=== PATIENT | female | born 1965 | race Asian ===

== ENCOUNTER → 2016-12-16 | Outpatient (CLI) | payer OTHER ==
--- NOTE | 2016-12-16 10:15 | DIAGNOSTIC IMAGING REPORT ---
LEFT SHOULDER MIN 2 VIEWS ROUTINE CLINICAL HISTORY: Left shoulder pain following fall. COMPARISON: None FINDINGS: Alignment of the left shoulder is anatomic. A few small calcific densities are noted along the superolateral aspect of the left humeral head. These measure up to 4 mm. No acute fracture is identified. There is mild degenerative changes of the left shoulder. IMPRESSION: 1. No acute fracture or dislocation of the left shoulder. 2. A few small calcific densities along the superolateral aspect of the left humeral head. These are nonspecific although could reflect minimal calcific tendinitis. Electronically signed by: Jan Crump M.D. 12/16/2016 10:14 AM Dictated Date/Time: 12/16/2016 10:12 AM
--- NOTE | 2016-12-16 10:16 | DIAGNOSTIC IMAGING REPORT ---
RIGHT SHOULDER MIN 2 VIEWS ROUTINE CLINICAL HISTORY: Right shoulder pain status post fall. COMPARISON: None FINDINGS: Alignment of the right shoulder is anatomic. There is no acute fracture. There is mild arthritis of the right acromioclavicular and glenohumeral joints. IMPRESSION: No acute fracture or dislocation of the right shoulder. Electronically signed by: Jan Crump M.D. 12/16/2016 10:15 AM Dictated Date/Time: 12/16/2016 10:14 AM
== END | disposition home or self-care (01) ==
LOC: C.RAD 09:33
PROVIDERS: ATTEND Nurse Practitioner Family
DX: M25.511 Pain in right shoulder (principal); M62.838 Other muscle spasm; M25.512 Pain in left shoulder

== ENCOUNTER 2017-04-04 18:48 | Emergency (ER) | payer OTHER ==
[~2017-04-04] VITALS: Ht 162.6 cm; Wt 61.0 kg
[2017-04-04 18:52] VITALS: TEMP 36.7; Ht 162.6 cm; Wt 61.0 kg
--- NOTE | 2017-04-04 19:22 | EMERGENCY ROOM VISIT NOTE ---
ED Visit Note First contact with patient: 18:54 CHIEF COMPLAINT: Eye pain HISTORY OF PRESENT ILLNESS: This 52-year-old female patient presents to the emergency department ambulatory complaining of irritation in the right eye. The patient states that she accidentally soaked her contact lenses in a disinfectant solution rather than her normal contact solution last night. She states that she flushed the eye with water and with her regular contact solution. She has had continued irritation in the eye which she rates a 1/10. Her vision has not been affected. She has been wearing her contacts today. She states that she told a coworker and they told her to come here because they were concerned for a chemical infection in the eye. REVIEW OF SYSTEMS: A 6 system review of systems was completed with positives and pertinent negatives listed in the HPI. ALLERGIES: Latex, aspirin, penicillins MEDICATIONS: No chronic medications PMH: No significant past medical history. SOCIAL HISTORY: The patient lives locally with family. PHYSICAL EXAM: Vital Signs: Reviewed Nurse's notes, vital signs stable. Visual acuity 20/30 bilateral eyes with correction. GENERAL: This is a 52-year-old female, in no acute distress, but who is uncomfortable from the eye problem. Well-developed well-nourished. EYES: The pupils are equal round and reactive to light and accommodation. EOMs are full and without tenderness. There is discharge of clear tears from the right eye which is injected. There is no foreign body visible under the eyelid even after lid eversion. Funduscopic exam reveals no hemorrhages, papilledema, or other abnormalities. No foreign body was seen embedded in the cornea under slit lamp exam. The cornea was clear and no hyphema was seen. Fluorescein uptake was observed with ultraviolet light significant for a corneal abrasion there is minimal fluorescein uptake over the area of the cornea diffusely. EMERGENCY DEPARTMENT COURSE: I examined the patient. A slit lamp exam was performed as above. She does appear to have a very mild chemical irritation of the eye with minimal fluorescein uptake. The patient was placed on Ciloxan and instructed to wear her glasses rather than contacts for the next one week. I suspect that her symptoms will resolve very quickly. She was instructed to follow-up with her eye doctor or return here for any worsening or new/ concerning symptoms. She verbalized understanding and was discharged home in good condition. Medication reconciliation: I attest that I have personally reviewed the patient 's current medication list. Blood pressure screening: Patient was found to have normal blood pressure on screening and does not require follow-up. DIAGNOSIS: Chemical irritation of the right eye Current/Historical Medications No Active Prescriptions or Reported Meds Allergies Coded Allergies: Latex1 -Allergic Contact Dermititis (Verified Allergy, Mild, PT STATES UNKNOWN REACTION, 04/04/17) Penicillins (Verified Allergy, Mild, UNKNOWN CHILD RXN, 10/19/09) Aspirin (Verified Adverse Reaction, Mild, GI UPSET, 04/04/17) Vital Signs Date Time Temp Pulse Resp B/P (MAP) Pulse Ox O2 Delivery O2 Flow Rate FiO2 04/04/17 19:36 67 16 96/70 96 04/04/17 18:52 36.7 67 18 123/66 94 Room Air Medications Administered Medications (Trade) Dose Ordered Sig/Shobha Route Start Time Stop Time Status Last Admin Dose Admin Ciprofloxacin HCl (Ciprofloxacin 0.3% Op Soln) 2 drops Q4H ONCE OP 04/04/17 19:30 04/04/17 19:31 DC 04/04/17 19:35 2 DROPS Departure Information Impression Primary Impression: Chemical exposure of eye Dispostion Home / Self-Care Condition GOOD Prescriptions No Active Prescriptions or Reported Meds Referrals Yuly Coe C.R.NDonnaPDonna (PCP) Patient Instructions My [facility] Additional Instructions You have been prescribed Ciloxan eye drops. This is an antibiotic which will help to prevent an infection from developing in your affected eye. Use 2 drops in the affected eye every 4 hours while awake for the next 3-4 days until symptoms resolve. For pain control, you can use the following [id number] medicines (if >12 yo): - Regular strength (325mg/tab) Tylenol (acetaminophen) 2 tabs every 4-6 hours as needed. Do not exceed 12 tablets in a 24 hour period. Avoid taking more than 4 grams (4000 mg) of Tylenol per day. This includes any other sources of acetaminophen you may take on a regular basis. - Regular strength (200 mg/tab) Advil (ibuprofen) 1-2 tabs every 4-6 hours as needed. Do not exceed a dose of 3200 mg per day. Wear your glasses rather than contacts for the next 3-4 days or until symptoms have completely resolved.
[2017-04-04] MEDS ORDERED: CIPROFLOXACIN HCL 0.3% OP SOLN 2.5 ML BTL OP ONE (19:30)
[2017-04-04 19:36] VITALS: BP 96/70; PULSE 67; O2SAT 96
== END 2017-04-04 19:38 | disposition home or self-care (01) ==
LOC: C.EDB 18:49 → C.EDD 19:38
DX: Z77.098 Contact with and (suspected) exposure to other hazardous, chiefly nonmedicinal, chemicals (principal)

== ENCOUNTER → 2017-09-09 | Outpatient (CLI) | payer OTHER ==
[~2017-09-09] MED LIST: LUTE15CA PO; TRAM-10 PO; ULT50X PO
== END | disposition home or self-care (01) ==
LOC: C.RDSM 13:09
PROVIDERS: ATTEND Physical Medicine & Rehabilitation Sports Medicine
DX: M25.511 Pain in right shoulder (principal); M25.512 Pain in left shoulder

== ENCOUNTER → 2017-10-08 | Day surgery (SDC) | payer OTHER ==
[2017-09-16 13:40] VITALS: Ht 162.6 cm; Wt 60.5 kg
[~2017-10-08] VITALS: Ht 162.6 cm; Wt 60.5 kg
[~2017-10-08] MED LIST changes: +ATROPINE SULFATE 0.1 MG/ML 5ML SYR IV PRN; +CEFAZOLIN 1000MG IV PUSH 5 ML IV SCH; +DEXAMETHASONE SOD INJ 4 MG/ML VIAL ONE; +EpHEDrine SULFATE INJ 50 MG/ML AMP IV PRN; +EpHEDrine SULFATE INJ 50 MG/ML AMP ONE; +EpINEphrine INJ 1MG/ML AMP 1 MG/ML AMP ONE; +FENTANYL CITRATE INJ 50 MCG/1 ML 2 ML VIAL IV PRN; +FENTANYL CITRATE INJ 50 MCG/1 ML 2 ML VIAL ONE; +HYDROCODONE/ACETAMOPHEN 5/325MG TAB PO PRN; +LACTATED RINGER'S 1000ML 1,000 ML IV SCH; +LIDOCAINE HCL 1% MPF 5 ML VIAL ONE; +LIDOCAINE HCL 2% 2 ML VIAL (20MG/ML) ONE; +LIDOCAINE/EPINEPHRINE 1% 20 ML VIAL ONE; -LUTE15CA PO; +MIDAZOLAM HCL 1 MG/ML 2ML VIAL ONE; +MoRPHine SULFATE 2 MG/ML CARP IV PRN; +MoRPHine SULFATE 4 MG/ML 1 ML CARP\\VIAL IV PRN; +ONDANSETRON INJ 2 MG/ML 2 ML VIAL IV PRN; +ONDANSETRON INJ 2 MG/ML 2 ML VIAL ONE; +PROPOFOL IV EMULSION 10 MG/ML 20 ML VIAL IV ONE; +ROPIVACAINE 0.5% 5 MG/ML 30 ML VIAL ONE; +SODIUM CHLORIDE 0.9% 1000ML 1,000 ML IV SCH; +SODIUM CHLORIDE 0.9% INJ 10 ML VIAL ONE; -ULT50X PO
--- NOTE | 2017-10-08 08:33 | History & Physical Bridge Note ---
H&P Re-Evaluation Bridge Note: I have examined the patient, reviewed the History & Physical and in the interval since the performance of the History & Physical I have noted the following changes of clinical significance: No changes noted
--- NOTE | 2017-10-08 12:09 | [facility] Post Operative Brief Note ---
Immediate Operative Summary Operative Date Oct 08, 2017. Pre-Operative Diagnosis Left frozen shoulder, Right shoulder pain probable frozen shoulder Post-Operative Diagnosis Same as preop Procedure(s) Performed Bilateral shoulder examination under anesthesia. Attempted manipulation left shoulder. Right shoulder corticosteroid glenohumeral joint injection. If shoulder arthroscopic capsular releases. Left shoulder arthroscopic subacromial bursectomy area Surgeon Dr. Kimble Stereotyper Helper Surgeon(s) Liliana Puente PA-C, [employer] student Estimated Blood Loss 20 Findings Consistent with Post-Op Diagnosis Specimens None Drains None Anesthesia Type General Regional Complication(s) none Disposition Accompanied Pt To Recover: no Disposition: Recovery Room / PACU
--- NOTE | 2017-10-08 12:29 | Discharge Instructions-SurgCtr ---
Discharge Instructions Date of Service Oct 08, 2017. Visit Reason for Visit: Bilateral Frozen Shoulder;M75.02, M25.611, Z01.818 Discharge Discharge Diagnosis / Problem: adhesive capsulitis right and left shoulders. Discharge Goals Goal(s): Decrease discomfort, Improve function, Increase independence Activity Recommendations Activity Limitations: per Instructions/Follow-up section Weightbearing Status: Left weightbearing (as tolerated), Right weightbearing ( as tolerated) Anesthesia . Post Anesthesia Instructions: If you have had General Anesthesia or IV Sedation: * Do not drive today. * Resume driving when surgeon permits. * Do not make important decisions or sign legal documents today. * Call surgeon for: 1. Temperature elevations greater than 101 degrees F. 2. Uncontrollable pain. 3. Excessive bleeding. 4. Persistent nausea and vomiting. 5. Medication intolerance (nausea, vomiting or rash). * For nausea and vomiting use only clear liquids such as: tea, soda, bouillon until nausea subsides, then gradually increase diet as tolerated. * If you have any concerns or questions, call your surgeon's office. If physician is unavailable and it is an emergency, call 911 or go to the nearest emergency room. . Instructions / Follow-Up Instructions / Follow-Up The following are instructions to follow after Shoulder surgery ACTIVITY RECOMMENDATIONS: * Minimize activity after surgery. * No excessive walking, jogging, sports or laboring. * Return to activity is individualized depending on the patient and type of surgery. * Driving is not permitted until at least your first post operative visit. Please ask your doctor when it is safe to resume driving. * Expect increased discomfort with increased activity. Continue to ice the shoulder as needed. * Wear your sling for comfort. * Start physical therapy exercises both shoulders today, and report to physical therapy as scheduled tomorrow. SCHOOL/WORK RECOMMENDATIONS: * You may return to sedentary work or school when you are feeling more comfortable. This is usually 3-7 days after surgery. MEDICATIONS: * You will have a prescription for pain medication and an anti-inflammatory medication after surgery. * Use the pain medication for severe pain and the anti-inflammatory for less severe pain. Once the pain medication has run out, try to use the anti-inflammatory medication. If this is not effective, contact the office for assistance. * The pain medication may cause nausea, constipation and drowsiness. You should see how they affect you before driving or similar activity. * The anti-inflammatory medication may cause stomach upset and bleeding. If this occurs let your doctor know immediately . * Take a stool softener like Colace or a laxative like Senokot to prevent constipation. DIET: * Resume previous diet. SPECIAL CARE: ICE: You have the option of an ice cooler, gel packs or ice bags. * If you have an ice cooler, refer to the instructions for that device. The ice cooler may be used continuously. * If you do not have an ice cooler, you will need to use ice bags or gel packs. Do not apply ice directly to the skin. Use a thin dressing or mariya shirt between the skin and ice bag. Apply ice for 20-30 minutes and repeat every 2-4 hours. This is especially important for the first 7-10 days after surgery. Once the pain improves, use ice as needed. ELEVATION: * You may be more comfortable sleeping in an upright position. Use the sling to elevate your arm. DRESSING: * Your dressing will be changed at your first therapy appointment approximately 4-5 days after surgery. Band-aids, tape strips or gauze may be applied. You may then change your dressing daily. * Reapply dressing followed by the EBIce cooling pad (if chosen) and then the sling. * Always wash your hands prior to touching the incision area. * Once the stitches are removed, you may leave the wound open to air or cover with gauze. * Expect some bloody drainage for the first few days after surgery. * Leave the tape strips, if present, in place for 5-7 days. * Band-aids and gauze may be changed daily. * There may be a gauze pad in your armpit area. This can be changed daily or replaced by a dry washcloth. SLING/BRACE: * You will need to use a sling or brace after surgery. Wear sling for comfort. BATHING: * You may shower or sponge-bathe immediately after surgery. The post operative shoulder dressing is mostly water-tight. You may shower right over this dressing, but be reasonably careful not to get the gauze or incision wet. * Once the dressing has been changed on the fourth or fifth day after surgery, you may shower and get the incision wet. * Wash with regular soap and water. * Do not bathe (submerge the incision), soak, swim or use a hot tub until the incision is completely healed over with normal skin and the doctor has given the OK to proceed. * There is no need to apply any ointments, powders or salves to your incision. * Do not apply alcohol or hydrogen peroxide directly to the incision. * Diluted peroxide (50:50 mixture with sterile saline) may be used to clean dried blood from around the incision area. THERAPY: * You will begin therapy four or five days after surgery. * Organized therapy with the therapist is important for the first 2-4 months after surgery depending on the type of procedure. During that time you will attend therapy 1-3 times per week. * You will also need to do daily exercises for range of motion and strength as instructed. * Patients who have a Capsular Shift Procedure will need to abide by temporary range of motion limitations. * Patients having Rotator Cuff Surgery are not allowed to actively lift their arms until 4-6 weeks after surgery. * Please check with your doctor regarding appropriate motion restrictions. FOLLOW UP VISIT: * If not already scheduled, please call the office at to schedule a follow-up appointment for 10 days after surgery and monthly thereafter. * Physical therapy appointment on 10/09/2017 at 11:00 AM * You have a follow-up appointment scheduled with Dr. Kimble in October at 10:30 AM Diet Recommendations Home Diet: no limitations, resume previous diet Procedures Procedures Performed: Bilateral shoulder examination under anesthesia. Attempted manipulation left shoulder. Right shoulder corticosteroid glenohumeral joint injection. If shoulder arthroscopic capsular releases. Left shoulder arthroscopic subacromial bursectomy area Pending Studies Studies pending at discharge: no Medical Emergencies . Who to Call and When: Medical Emergencies: If at any time you feel your situation is an emergency, please call 911 immediately. . Non-Emergent Contact Non-Emergency issues call your: Surgeon Call Non-Emergent contact if: temperature is above 101, your pain is not controlled, your pain is worsening, wound has increased drainage, wound has increased redness, wound has increased pain, you have any medication questions . . "Provider Documentation" section prepared by Liliana Puente. . [place] Drug Monitoring Program Search Results: patient reviewed within database, no issues identified
--- NOTE | 2017-10-08 12:32 | [facility] Operative Report ---
Operative Report Operative Date Oct 08, 2017. Pre-Operative Diagnosis Left frozen shoulder, Right shoulder pain probable frozen shoulder Post-Operative Diagnosis Same as preop Procedure(s) Performed Bilateral shoulder examination under anesthesia. Attempted manipulation left shoulder. Right shoulder corticosteroid glenohumeral joint injection. If shoulder arthroscopic capsular releases. Left shoulder arthroscopic subacromial bursectomy area Surgeon Dr. Kimble Garment Sewer Hand Surgeon(s) Liliana Puente PA-C, [employer] student Estimated Blood Loss 20 Findings Adhesive capsulitis bilateral shoulders Specimens None Drains none Anesthesia Gen. Complication(s) None Disposition Recovery Room / PACU Indications Patient is a 52 year old female who presented to our office with complaints of bilateral shoulder pain and stiffness. She is failed conservative treatment which has included corticosteroid injections and long-term physical therapy. She continues to have shoulder pain and stiffness. Surgical intervention was recommended and she agreed to proceed with surgery. Informed consent was obtained. Risks and complications were discussed. Description of Procedure Patient was taken to the operating room and placed under IV sedation. Exam under anesthesia was performed of her right shoulder and intra-articular injection was done. A manipulation was performed on her left shoulder with no significant improvement in range of motion. It was determined that we would need to do a capsular release of her left shoulder. She was then intubated and placed in lateral decubitus position. Timeout was performed. She was given 1 g of IV Ancef for surgical prophylaxis. She was prepped and draped in routine sterile fashion. I was present during the entire case, please see Dr. Kimble 's operative report for further detail. She was awakened and transferred to the recovery room in stable condition. I attest to the content of the Intraoperative Record and any orders documented therein. Any exceptions are noted below.
--- NOTE | 2017-10-08 12:42 | [facility] Operative Report ---
Operative Report Operative Date Oct 08, 2017. Pre-Operative Diagnosis Left frozen shoulder, Right shoulder pain probable frozen shoulder Post-Operative Diagnosis Same as preop Procedure(s) Performed Bilateral shoulder examination under anesthesia. Attempted manipulation left shoulder. Right shoulder corticosteroid glenohumeral joint injection. If shoulder arthroscopic capsular releases. Left shoulder arthroscopic subacromial bursectomy area Surgeon Dr. Kimble Solar Installation Foreman Surgeon(s) Liliana Puente PA-C, [employer] student Estimated Blood Loss 20 Findings Bilateral shoulder stiffness Specimens None Drains none Anesthesia laryngeal mask with left upper extremity interscalene block Complication(s) None Disposition Recovery Room / PACU Indications The patient is a 52-year-old female with bilateral frozen shoulder left greater than right. This is been refractory to nonsurgical methods of management. She was offered bilateral manipulations but wished only have her left shoulder addressed at this time with surgery. Left shoulder will be manipulated and arthroscopic capsular releases will be performed. The right shoulder will receive a cortisone injection. Description of Procedure Informed consent was obtained. The patient identified laura collier. She identified the operative site as the both shoulders. A preoperative surgical timeout was performed. Preoperative dose of IV antibiotics was initially held with a but later administered less than 1 hour prior to start of the left shoulder arthroscopic procedure. She was initially positioned supine on the OR table. DVT prophylaxis with early mobility and impulse foot pumps. Both shoulders were examined under anesthesia. The right shoulder showed forward flexion of 130 compared to left shoulder 100. The arm at the side external rotation was 45 on the right 20 on the left. At 90 of abduction and external rotation was 60 on the right and 20 on the left. At 90 of abduction internal rotation was 60 on the right 60 on the left. Abduction was 110 right and 80 on the left. A corticosteroid injection 40 mg Depo-Medrol 2 mL lidocaine 1% plain were injected into the left shoulder glenohumeral joint posterior approach. A manipulation was attempted on the left shoulder in flexion external rotation and abduction. There is no significant gives to the tissue with no improvement with gentle pressure. The arthroscopic Procedure was then indicated. She was positioned decubitus with the left side up torso secured to the table and axillary roll was inserted. Bony prominences were inspected particularly around the chest knee and peroneal nerve. The beanbag was utilized. At the Arthrex shoulder tower was utilized with 10 pounds of lateral and distal traction. The arm was prepped and draped in usual sterile fashion. A posterior soft spot viewing portal was established followed by an anterior mid glenoid working portal using outside in technique. There was substantial contracture of the rotator interval with thick and contracted capsular tissue and diffuse synovitis which was very hyperemic. I identified the upper border of the subscapularis. The trocar was inserted in the rotator interval. This entered just inferior to the biceps. The shaver and cold cut were then utilized to thoroughly debride the rotator interval from the posterior margin of the biceps to the upper border of the subscapularis. The coracoid was identified and skeletonized. Next a arthroscopic biters utilized to release the tissue on the anterior aspect of the shoulder. The subscapular tendon was identified and just distal to this was a very markedly thickened and contracted axillary pouch. This was released just adjacent to the glenoid using basket forceps down to about the 6:30 o'clock position. The biceps tendon was freed from the thickened capsular tissue bluntly initially. I then used a combination of shaver cautery and biter to carefully debride the thickened superior capsule and free of the biceps in its entirety. The biceps looked normal otherwise. The labrum was intact circumferentially. There were some minor fraying of the articular cartilage on the humeral head the bare area was normal and the glenoid articular surfaces were normal. The rotator cuff was intact circumferentially the bare area was normal. I then placed the scope anterior and working portal posteriorly. I then used the same technique to debride the posterior capsule until the last infraspinatus muscle was visualized. This was then carried out under direct visualization into the axillary pouch releasing the thickened capsule completely. This resulted in marked improvement in the available space within the shoulder. Cold cut was utilized to control bleeding the capsular edges were debrided with shaver. The berenice on through the shoulder pickup loose debris. The scope was then placed in the subacromial space and accessory lateral portal was created. The subacromial bursa was debrided. There were no significant adhesions noted in the subacromial space. The arm was then gently manipulated into 150 of forward elevation and 60 of external rotation. The portals were closed with 4-0 nylon soft sterile dressing was applied with an ABD in the armpit. Simple arm sling. Patient was awakened from anesthesia without difficulty and taken to the recovery room in stable condition. There were no specimens or complications. Counts were correct in the case. Blood loss was approximately 20 mL. At the conclusion operation I spoke to the patient's mother and and informed her of my findings. Detailed postoperative instructions were given. She should attempt to do some physical therapy tonight at home. She should be in tomorrow for outpatient physical therapy. I attest to the content of the Intraoperative Record and any orders documented therein. Any exceptions are noted below.
[2017-10-08 13:25] VITALS: TEMP 36.4
--- NOTE | 2017-10-08 13:49 | Anesthesia Progress Nt - [facility] ---
Anesthesia Post Op Note Date & Time Oct 08, 2017 at 13:49 Vital Signs Pain Intensity: 5 Vital Signs Past 12 Hours Date Time Temp Pulse Resp B/P (MAP) Pulse Ox O2 Delivery O2 Flow Rate FiO2 10/08/17 13:25 36.4 65 18 124/80 (95) 98 Room Air 10/08/17 13:19 36.4 10/08/17 13:18 68 13 96 10/08/17 13:18 69 13 10/08/17 13:16 147/88 (118) 10/08/17 13:13 65 12 10/08/17 13:13 69 12 97 10/08/17 13:11 Room Air 10/08/17 13:11 130/77 (111) 10/08/17 13:08 67 14 100 10/08/17 13:08 68 14 10/08/17 13:06 149/82 (94) 10/08/17 13:03 78 15 100 10/08/17 13:03 78 15 10/08/17 13:01 151/78 (90) 10/08/17 12:58 63 6 100 10/08/17 12:58 63 6 10/08/17 12:56 145/78 (92) 10/08/17 12:53 64 13 100 10/08/17 12:53 65 13 10/08/17 12:51 137/81 (96) 10/08/17 12:48 70 8 10/08/17 12:48 70 8 100 10/08/17 12:46 140/75 (94) 10/08/17 12:43 73 17 10/08/17 12:43 73 17 100 10/08/17 12:41 140/78 (103) 10/08/17 12:38 70 18 10/08/17 12:38 70 18 100 10/08/17 12:36 15 10/08/17 12:36 74 15 10/08/17 12:36 129/80 (93) 10/08/17 12:33 72 10/08/17 12:33 63 100 10/08/17 12:31 16 10/08/17 12:31 148/82 (100) 10/08/17 12:31 76 16 148/82 10/08/17 12:28 78 14 100 10/08/17 12:28 79 14 10/08/17 12:26 67 15 160/85 100 10/08/17 12:26 160/85 (101) 10/08/17 12:26 69 15 10/08/17 12:24 159/89 10/08/17 12:24 159/89 (103) 10/08/17 12:23 36.0 69 12 159/89 100 Mask 6 10/08/17 09:35 59 9 138/70 100 10/08/17 08:06 36.5 54 16 116/64 (81) 99 Room Air Notes Mental Status: alert / awake / arousable, participated in evaluation Pt Amnestic to Procedure: Yes Nausea / Vomiting: adequately controlled Pain: adequately controlled Airway Patency, RR, SpO2: stable & adequate BP & HR: stable & adequate Hydration State: stable & adequate Anesthetic Complications: no major complications apparent
[2017-10-08 14:22] VITALS: BP 118/74; PULSE 72; O2SAT 99
== END | disposition home or self-care (01) ==
LOC: X.SURG 07:37
PROVIDERS: ATTEND Physical Medicine & Rehabilitation Sports Medicine
DX: M75.01 Adhesive capsulitis of right shoulder (principal); M75.02 Adhesive capsulitis of left shoulder; Z82.3 Family history of stroke; Z85.51 Personal history of malignant neoplasm of bladder

== ENCOUNTER → 2017-12-07 | Outpatient (CLI) | payer OTHER ==
[~2017-12-07] MED LIST changes: -ATROPINE SULFATE 0.1 MG/ML 5ML SYR IV PRN; -CEFAZOLIN 1000MG IV PUSH 5 ML IV SCH; -DEXAMETHASONE SOD INJ 4 MG/ML VIAL ONE; -EpHEDrine SULFATE INJ 50 MG/ML AMP IV PRN; -EpHEDrine SULFATE INJ 50 MG/ML AMP ONE; -EpINEphrine INJ 1MG/ML AMP 1 MG/ML AMP ONE; -FENTANYL CITRATE INJ 50 MCG/1 ML 2 ML VIAL IV PRN; -FENTANYL CITRATE INJ 50 MCG/1 ML 2 ML VIAL ONE; -HYDROCODONE/ACETAMOPHEN 5/325MG TAB PO PRN; -LACTATED RINGER'S 1000ML 1,000 ML IV SCH; -LIDOCAINE HCL 1% MPF 5 ML VIAL ONE; -LIDOCAINE HCL 2% 2 ML VIAL (20MG/ML) ONE; -LIDOCAINE/EPINEPHRINE 1% 20 ML VIAL ONE; +LUTE15CA PO; -MIDAZOLAM HCL 1 MG/ML 2ML VIAL ONE; -MoRPHine SULFATE 2 MG/ML CARP IV PRN; -MoRPHine SULFATE 4 MG/ML 1 ML CARP\\VIAL IV PRN; -ONDANSETRON INJ 2 MG/ML 2 ML VIAL IV PRN; -ONDANSETRON INJ 2 MG/ML 2 ML VIAL ONE; -PROPOFOL IV EMULSION 10 MG/ML 20 ML VIAL IV ONE; -ROPIVACAINE 0.5% 5 MG/ML 30 ML VIAL ONE; -SODIUM CHLORIDE 0.9% 1000ML 1,000 ML IV SCH; -SODIUM CHLORIDE 0.9% INJ 10 ML VIAL ONE; +ULT50X PO
== END | disposition home or self-care (01) ==
LOC: C.RDSM 12:00
PROVIDERS: ATTEND Physical Medicine & Rehabilitation Sports Medicine
DX: M25.611 Stiffness of right shoulder, not elsewhere classified (principal); M75.02 Adhesive capsulitis of left shoulder

== ENCOUNTER → 2017-12-10 | Day surgery (SDC) | payer OTHER ==
[2017-12-09 11:01] VITALS: Ht 162.6 cm; Wt 60.5 kg
[~2017-12-10] VITALS: Ht 162.6 cm; Wt 60.5 kg
[~2017-12-10] MED LIST changes: +FENTANYL CITRATE INJ 50 MCG/1 ML 2 ML VIAL ONE; +HYDROCODONE/ACETAMIN 5/325MG TAB PO PRN; +KETOROLAC TROMETHAMINE 15 MG/ML VIAL IV ONE; +KETOROLAC TROMETHAMINE 30 MG/ML VIAL ONE; +LACTATED RINGER'S 1000ML 1,000 ML IV SCH; +LIDOCAINE HCL 1% 20 ML VIAL ONE; +LIDOCAINE HCL 2% 2 ML VIAL (20MG/ML) ONE; +LIDOCAINE/EPINEPHRINE 1% 20 ML VIAL ONE; +MIDAZOLAM HCL 1 MG/ML 2ML VIAL ONE; +MoRPHine SULFATE 2 MG/ML CARP IV PRN; +MoRPHine SULFATE 4 MG/ML 1 ML CARP\\VIAL IV PRN; +NURSING VERBAL MED ORDER ONE; +ONDANSETRON INJ 2 MG/ML 2 ML VIAL IV PRN; +ONDANSETRON INJ 2 MG/ML 2 ML VIAL ONE; +PROPOFOL IV EMULSION 10 MG/ML 20 ML VIAL IV ONE; +ROPIVACAINE 0.5% 5 MG/ML 30 ML VIAL ONE; +SODIUM CHLORIDE 0.9% 1000ML 1,000 ML IV SCH; -TRAM-10 PO
--- NOTE | 2017-12-10 12:56 | [facility] Post Operative Brief Note ---
Immediate Operative Summary Operative Date Dec 10, 2017. Pre-Operative Diagnosis Bilateral frozen shoulders, status post left shoulder arthroscopic capsular release Post-Operative Diagnosis Same as pre-op Procedure(s) Performed Bilateral Shoulder Manipulation Under Anesthesia And Steroid Injection Surgeon Digital Marketing Officer Surgeon(s) Aron HIRSCH Estimated Blood Loss Zero Findings Consistent with Post-Op Diagnosis Specimens None Drains None Anesthesia Type MAC Regional Complication(s) none Disposition Accompanied Pt To Recovery: no Disposition: Recovery Room / PACU
--- NOTE | 2017-12-10 13:02 | Discharge Instructions-[facility] ---
Discharge Instructions Date of Service Dec 10, 2017. Visit Reason for Visit: Bilateral Frozen Shoulder Discharge Discharge Diagnosis / Problem: Bilateral frozen shoulders Discharge Goals Goal(s): Decrease discomfort, Improve function, Increase independence Activity Recommendations Activity Limitations: per Instructions/Follow-up section Weightbearing Status: Left weightbearing (as tolerated), Right weightbearing ( as tolerated) Anesthesia . Post Anesthesia Instructions: If you have had General Anesthesia or IV Sedation: * Do not drive today. * Resume driving when surgeon permits. * Do not make important decisions or sign legal documents today. * Call surgeon for: 1. Temperature elevations greater than 101 degrees F. 2. Uncontrollable pain. 3. Excessive bleeding. 4. Persistent nausea and vomiting. 5. Medication intolerance (nausea, vomiting or rash). * For nausea and vomiting use only clear liquids such as: tea, soda, bouillon until nausea subsides, then gradually increase diet as tolerated. * If you have any concerns or questions, call your surgeon's office. If physician is unavailable and it is an emergency, call 911 or go to the nearest emergency room. . Instructions / Follow-Up Instructions / Follow-Up DIET: * Resume previous diet. MEDICATIONS: * Please take your prescriptions as instructed at your pre-op appointment and/ or see medication discharge instructions listed above. * If concerns develop, call your physician's office at . SPECIAL CARE INSTRUCTIONS: * Ice to bilateral shoulders as needed for pain. * Allowed for range of motion of bilateral shoulders, elbows and wrists. * Sling left arm for comfort * You may be comfortable sleeping in upright position. * Your surgical extremity may be discolored due to prepping agents used on the skin. A bluish-green tint is a normal variant and should not cause alarm. Call your doctor at [phone] if: * Temperature above 101 degrees * Pain not relieved by pain medicine ordered * There is increased drainage or redness from any incision * You have any unanswered questions, problems or concerns. FOLLOW UP VISIT: * If not already scheduled, please call the office at to schedule a follow-up appointment. * You have a physical therapy appointment on 12/10/17 at 7 a.m. * You have a follow up schedule with Dr. Kimble on 4/11/18 at 2:00 p.m. Diet Recommendations Home Diet: no limitations, resume previous diet Procedures Procedures Performed: Bilateral Shoulder Manipulation Under Anesthesia And Steroid Injection Pending Studies Studies pending at discharge: no Medical Emergencies . Who to Call and When: Medical Emergencies: If at any time you feel your situation is an emergency, please call 911 immediately. . Non-Emergent Contact Non-Emergency issues call your: Surgeon Call Non-Emergent contact if: your pain is not controlled, your pain is concerning you, you have any medication questions . . "Provider Documentation" section prepared by Liliana Puente. . [place] Drug Monitoring Program Search Results: patient reviewed within database, no issues identified
--- NOTE | 2017-12-10 13:05 | [facility] Operative Report ---
Operative Report Operative Date Dec 10, 2017. Pre-Operative Diagnosis Bilateral frozen shoulders, status post left shoulder arthroscopic capsular release Post-Operative Diagnosis Same as pre-op Procedure(s) Performed Bilateral Shoulder Manipulation Under Anesthesia And Steroid Injection Surgeon Food Trades Assistants Surgeon(s) Aron HIRSCH Estimated Blood Loss Zero Specimens None Drains None Anesthesia Type MAC Regional Complication(s) none Disposition no Recovery Room / PACU Indications Patient is a 52-year-old female with a history of bilateral frozen shoulders. She status post a left shoulder arthroscopy capsular release approximately 2 months ago with continued stiffness. She has failed conservative treatment which is consistent of multiple physical therapy appointments. Surgical intervention was recommended for manipulation and corticosteroid injections. She has agreed to proceed. Risks and complications were discussed and informed consent was obtained. Description of Procedure Patient was taken to the operating room and placed under IV sedation. She had a peripheral nerve block in her left upper extremity. Timeout was performed. She tolerated the manipulations well. Intra-articular corticosteroid injections were performed by myself and Dr. Kimble. I was present during the entire case, please see Dr. Kimble's operative report for further detail. Patient was awakened and transferred to recovery room in stable condition. I attest to the content of the Intraoperative Record and any orders documented therein. Any exceptions are noted below.
--- NOTE | 2017-12-10 14:05 | [facility] Operative Report ---
Operative Report Operative Date Dec 10, 2017. Pre-Operative Diagnosis Bilateral frozen shoulders, status post left shoulder arthroscopic capsular release Post-Operative Diagnosis Same as pre-op Procedure(s) Performed Bilateral Shoulder Manipulation Under Anesthesia And Steroid Injection Surgeon Gin Feeder Surgeon(s) Aron HIRSCH Estimated Blood Loss Zero Findings Stiff bilateral shoulders Specimens None Anesthesia Left shoulder interscalene block with intravenous sedation Complication(s) None Disposition Recovery Room / PACU Indications The patient is 52-year-old female with bilateral frozen shoulders. She is about 2 months out from a left shoulder arthroscopic capsular releases. She has regressed in her left shoulder range of motion. Her right shoulder which she did not desire to have treated before has gotten more stiff. I recommended that she go to the operating room for manipulation of both shoulders with corticosteroid injections. Description of Procedure Patient was identified. The operative site was marked as both shoulders. Preop surgical timeout was performed. Antibiotics are indicated. She was positioned supine on the hospital stretcher. Anesthetic was administered along with interscalene block left shoulder DVT prophylaxis is not indicated The left shoulder of 3 manipulation show forward flexion 115. At 90 of abduction external rotation was 30 internal rotation 30. With the arm to side external rotation was 30. Gentle manipulation of the left shoulder was performed using a short lever arm and slow steady pressure. After manipulation her forward elevation with gravity was 160. At 90 of abduction her external rotation was 90 her internal rotation was 45. External rotation with the arm to side was 60. The typical crepitation noted with manipulation was experienced. At the conclusion of the procedure both shoulders were injected with separate preparations of 40 mg of Depo-Medrol and 3 cc lidocaine 1% plain using sterile technique from a posterior approach into the glenohumeral joint. The right shoulder likewise was manipulated in a similar fashion. Pre- manipulation for flexion was 95. At 90 of abduction external rotation was 45 internal rotation 30. With the arm to side external rotation was 30. Postmanipulation forward elevation was 170. At 90 of external correction at 90 of abduction external rotation was 90 internal 60. With the arm to side external rotation was 60. She was awakened from anesthesia without difficulty and taken to the recovery room in stable condition there were no specimens complications counts or blood loss. No one was available to speak to at the conclusion operation She will do some early therapy on her own and will follow-up tomorrow for physical therapy to begin a rehabilitation I attest to the content of the Intraoperative Record and any orders documented therein. Any exceptions are noted below.
--- NOTE | 2017-12-10 14:45 | Anesthesia Progress Nt - [facility] ---
Anesthesia Post Op Note Date & Time Dec 10, 2017 at 14:45 Vital Signs Pain Intensity: 3 Vital Signs Past 12 Hours Date Time Temp Pulse Resp B/P (MAP) Pulse Ox O2 Delivery O2 Flow Rate FiO2 12/10/17 14:15 128/80 12/10/17 14:14 53 17 12/10/17 14:14 57 17 99 12/10/17 14:11 36.3 57 16 128/80 99 Room Air 12/10/17 14:10 129/74 12/10/17 14:09 54 19 99 12/10/17 14:09 54 19 12/10/17 14:05 137/75 12/10/17 14:04 53 13 99 12/10/17 14:04 53 13 12/10/17 14:00 136/74 12/10/17 13:59 52 14 12/10/17 13:59 53 14 99 12/10/17 13:55 132/75 12/10/17 13:54 56 10 12/10/17 13:54 59 10 97 12/10/17 13:50 128/77 12/10/17 13:49 56 12 100 12/10/17 13:49 56 12 12/10/17 13:45 136/71 12/10/17 13:44 51 11 100 12/10/17 13:44 51 11 12/10/17 13:40 142/71 12/10/17 13:39 49 12 100 12/10/17 13:39 50 12 12/10/17 13:35 132/73 12/10/17 13:34 52 14 100 12/10/17 13:34 51 14 12/10/17 13:30 134/75 12/10/17 13:29 52 13 100 12/10/17 13:29 51 13 12/10/17 13:25 128/70 12/10/17 13:24 52 13 12/10/17 13:24 52 13 100 12/10/17 13:20 113/68 12/10/17 13:19 53 11 100 12/10/17 13:19 53 11 12/10/17 13:15 111/64 12/10/17 13:14 55 16 100 12/10/17 13:14 55 16 12/10/17 13:10 109/65 12/10/17 13:09 58 12 100 12/10/17 13:09 58 12 12/10/17 13:05 98/59 12/10/17 13:04 59 12 100 12/10/17 13:04 60 12 12/10/17 13:03 92/57 12/10/17 13:02 36.3 62 12 92/57 99 Mask 6 12/10/17 12:29 65 12/10/17 12:29 64 18 100 12/10/17 12:28 63 10 12/10/17 12:23 62 100 12/10/17 12:23 65 12/10/17 11:32 36.5 63 16 108/74 (85) 99 Room Air Notes Mental Status: alert / awake / arousable, participated in evaluation Pt Amnestic to Procedure: Yes Nausea / Vomiting: adequately controlled Pain: adequately controlled Airway Patency, RR, SpO2: stable & adequate BP & HR: stable & adequate Hydration State: stable & adequate Anesthetic Complications: no major complications apparent
[2017-12-10 14:58] VITALS: BP 132/74; PULSE 55; TEMP 36.5; O2SAT 100
== END | disposition home or self-care (01) ==
LOC: X.SURG 11:12
PROVIDERS: ATTEND Physical Medicine & Rehabilitation Sports Medicine
DX: M75.02 Adhesive capsulitis of left shoulder (principal); Z88.0 Allergy status to penicillin; Z80.52 Family history of malignant neoplasm of bladder; Z82.3 Family history of stroke; Z90.89 Acquired absence of other organs